=== PATIENT | male | born 1960 | race Caucasian/White ===

== ENCOUNTER 2025-06-24 10:03 | Emergency (ER) | payer OTHER, SELFPAY ==
[2025-06-24 10:05] VITALS: BP 179/107
--- NOTE | 2025-06-24 10:19 | ED.GENMED ---
History of Present Illness
General
Chief Complaint: Foreign Body Removal
Source: patient
Exam Limitations: none
Time Seen by Provider: 06/24/25 10:07
Nursing documentation reviewed up to this point in time: agreed with
History of Present Illness
History of Present Illness:
64-year-old male with history of IDDM, sent here from Urgent Care, gave himself an insulin shot with a 32-gauge 4 mm insulin pen this morning and when he pulled it back, the needle was missing. He is concerned that the needle broke up into his
skin. He has no pain at the site. He circled 2 areas on his right lower abdomen where the needle possibly broke off.
Past History
Past History
ED Past Medical History: GERD, HTN, NIDDM and Other (Rotator cuff injury)
ED Past Surgical History: None
Social History
Tobacco: Non-smoker
Alcohol: Occasional
Drug: None
Personal: Single
Living: with family
Employment: Employed
Family History
Family History: Other (Noncontributory)
Review of Systems
Review of Systems
Allergies reviewed?: Yes
All Other Systems: ROS reviewed and negative except as documented in HPI and ROS
Phy Exam
Physical Exam
Physical Exam:
GENERAL: No acute distress. A&Ox3.
CONSTITUTIONAL: Afebrile.
RESPIRATORY: Regular respirations, nonlabored, lungs clear.
CARDIOVASCULAR: Regular rate and rhythm, no murmurs, no rubs.
GI: Soft, morbidly obese, nontender, normal BS. To marked circles on right lower abdomen pannus to indicate where possible needle broke off. Skin is normal-appearing.
MUSCULOSKELETAL: Moves with ease. Well perfused.
SKIN: Warm, dry, pink
PSYCH: Normal mood and affect. Well kept, interactive and appropriate
NEUROLOGIC: Awake, alert and oriented. No focal neurological deficits
Course
Orders/Labs/Results
Orders:
Orders
06/24/25 10:18
CR Abdomen - 1 View Urgent
Comment:
Reason For Exam: ? Insulin needle broke off R lower abd
Vital Signs
Initial and Last Documented VS:
Initial Vital Signs
Temp Pulse Resp BP Pulse Ox
97.4 F 83 16 179/107 97
06/24/25 10:05 06/24/25 10:05 06/24/25 10:05 06/24/25 10:05 06/24/25 10:05
Last Documented Vital Signs
Temp Pulse Resp BP Pulse Ox
97.4 F 78 16 140/72 96
06/24/25 10:05 06/24/25 10:48 06/24/25 10:48 06/24/25 10:48 06/24/25 10:48
MDM/Problems Addressed
MDM/Problems Addressed:
64-year-old male with history of IDDM, sent here from Urgent Care, gave himself an insulin shot with a 32-gauge 4 mm insulin pen this morning and when he pulled it back, the needle was missing. He is concerned that the needle broke up into his
skin. He has no pain at the site. He circled 2 areas on his right lower abdomen where the needle possibly broke off.
1 view abdomen x-ray initially reviewed by this examiner: No foreign body noted in abdominal wall soft tissues
*Pulse Oximetry
SaO2: 97
Oxygen Mode of Delivery: Room air
Patient hypoxic: not evaluated
*Critical Care Note
Total Time (30-74mins, 75-104mins- exclusive of procedures): Not Applicable
ED Attending Note
-
Portions of this chart may have been created with voice recognition software.� Occasional wrong word or��sound alike� substitutions may have occurred due to the inherent limitations of voice recognition software.
Discharge Plan
Departure
Patient Disposition: Home (Routine Discharge)
Date of Disposition: 06/24/25
Time of Disposition: 11:00
Patient with high blood pressure during this ER visit?: No
Condition: Good
Discharge Problem:
Questionable foreign body abdominal wall
Prescriptions:
No Action
aspirin 81 MG tablet,delayed release (DR/EC)
81 mg PO DAILY
citalopram 40 MG tablet
40 mg PO DAILY
lisinopril 20 MG tablet
20 mg PO DAILY
tamsulosin 0.4 MG capsule
0.4 mg PO DAILY
metformin 1,000 MG tablet
1,000 mg PO BID
levothyroxine 200 MCG tablet
225 mcg PO DAILY
finasteride 5 MG tablet
5 mg PO DAILY
rosuvastatin 5 MG tablet
5 mg PO DAILY
acetaminophen 325 MG tablet
650 mg PO Q4HPRN PRN (Reason: fever >/= 100.4F, MA,mild pain) Qty: 30 0RF
famotidine 20 MG tablet
40 mg PO BID Qty: 60 0RF
ascorbic acid (vitamin C) [Vitamin C] 500 MG tablet
500 mg PO DAILY Qty: 15 0RF
zinc sulfate 220 MG capsule
220 mg PO DAILY Qty: 15 0RF
melatonin 5 MG tablet
5 mg PO HS Qty: 30 0RF
cholecalciferol (vitamin D3) 2,000 UNITS tablet
2,000 units PO DAILY Qty: 30 0RF
insulin glargine [Lantus Solostar U-100 Insulin] 300 UNITS/3 ML insulin pen
20 units SC HS Qty: 5 0RF
(DME) pen needle, diabetic 1 EACH needle
1 ea MC PRN Qty: 100 12RF
(DME) blood sugar diagnostic [Blood Glucose Test] 1 EACH strip
1 ea MC PRN Qty: 100 12RF
alcohol swabs [Alcohol Prep Pads] 1 EACH pads, medicated
1 ea APPLIC PRN PRN (Reason: for blood glucose check) Qty: 100 12RF
(DME) lancets [Ultra Thin Lancets] 1 EACH misc
1 ea MC PRN Qty: 100 12RF
(DME) blood-glucose meter [Assure Prism Multi Meter] 1 EACH misc
1 ea APPLIC PRN Qty: 1 0RF
insulin aspart U-100 [Novolog FlexPen U-100 Insulin] 300 UNITS/3 ML insulin pen
9 units SC AC Qty: 5 0RF
Referrals:
Eddi Waters MD [Family Provider, Internal Medicine]
Activity Restrictions/Additional Instructions:
As we discussed, there is no foreign body noted in your abdominal wall on your x-ray.
Interventions
Interventions:
*Nursing Disposition Last Done: 06/24/25 11:22
Discharge Date and Time
Discharge Date/Time: 06/24/25 11:23
Print Language: ROMANIAN
[2025-06-24 10:48] VITALS: BP 140/72
== END 2025-06-24 11:23 | disposition home or self-care (01) ==
LOC: EMR 10:03
PROVIDERS: EMERGENCY PHYSICIAN Emergency Medicine; FAMILY PHYSICIAN Internal Medicine
DX: S30.92XA Unspecified superficial injury of abdominal wall, initial encounter (principal); W46.0XXA Contact with hypodermic needle, initial encounter; Y93.89 Activity, other specified; E11.9 Type 2 diabetes mellitus without complications; I10 Essential (primary) hypertension; Z79.4 Long term (current) use of insulin
CPT/HCPCS: 99283; 74018